=== PATIENT | female | born 1995 | race Caucasian/White ===

== ENCOUNTER 2017-06-09 13:45 | Inpatient (IN) | payer MEDICAID, SELFPAY ==
[2017-06-09 14:16] VITALS: RESP 18; BMI 18.8; BMI 18.9
[2017-06-09 14:31] VITALS: BP 121/84; PULSE 91; RESP 18; TEMP 36.5
[2017-06-09] MEDS: Buprenorphine HCl 2 MG TAB.SUBL SL (16:15)
[2017-06-09] MEDS: Methocarbamol 750 MG Tablet PO (16:15)
--- NOTE | 2017-06-09 16:31 | PCM.HP.STD ---
Problem List (1) Candidiasis of mouth Status: Acute (2) Nicotine dependence Status: Chronic (3) Heroin withdrawal Status: Acute History of Present Illness Date of Admission: 06/09/17 Chief Complaint: Heroin/fentanyl withdrawal Patient is a 21 years old female with history of heroin and fentanyl abuse, admitted for medical stabilization for [facility] program. Her last use was earlier today. She inhales both heroin and fentanyl, uses 0.5 to 2 gram of heroin a day. She has been using for last 9 month, had rehab in last December, when she had stayed clean for about 2 weeks after the intervention. She is feeling fair, but complaining of anxious feeling and leg cramps. Past Medical History Past Medical History (Chronic Problems): Chronic Problems Nicotine dependence (Chronic) Allergies No Known Allergies Allergy (Verified 01/13/17 16:19) Home Medications: Ambulatory Orders Medication Instructions Recorded Nicotine [Nicoderm Cq] 21 mg TRANSDERM. DAILY #14 patch 01/15/17 Smoking Status: Heavy Smoker (>10/day) - *Family History Maternal History Items: - - No medical problems Paternal History Items: - - No known medical problems Review of Systems Comment: ROS: In general: Patient has been in good health, denied of any constitutional symptoms, such as weight loss, or gain, fever, chills, or night sweats. Patient denied of any profound fatigue. HEENT: Unremarkable. Patient denied of any dizziness, chronic headache, blurred vision, double vision, dry mouth, or nasal congestion. CV/respiratory: There is no exertional shortness of breath, chest pain, palpitation, wheezing, cough, claudication, cold feet, or peripheral edema. GI: Patient denied any abdominal pain, nausea, vomiting, diarrhea, constipation, melena, or hematochezia. : Patient denied any significant urinary symptoms. Neurology: Unremarkable. There is no history of seizure as an adult. Psychological: +anxiety, opioid abuse. Endocrine: Unremarkable. Musculoskeletal: Upper leg cramps bilaterally. VTE Information - Inpt Only VTE Present on Admission: No VTE Mechan Device Prophylaxis: None VTE Pharm Prophylaxis ordered?: No Reason prophylaxis not ordered:: Treatment Not Indicated - Low risk. Patient Problems: Active and Suspected Problems Candidiasis of mouth (Acute) Objective: In general, patient is a well-nourished and developed adult. HEENT: Head is atraumatic, and normocephalic. Pupils are equal, round, and reactive to light and accommodations. Neck is supple. There is no lymphadenopathy, or thyromegaly. Oral mucosa is pink, and moist. +thrush. Heart: Auscultation is normal with regular rhythm and rate. There is no extra heart sounds, or murmurs. S1 and S2 are present. Point of maximal impulse is not displaced. Lungs: Lungs are clear to auscultation bilaterally. There is no wheezing, or crackles. Abdomen: Abdominal wall is non-tender, and non-distended. There is no palpable mass or organomegaly. Normoactive bowel sounds are present. Extremities: There is no cyanosis or clubbing. Peripheral pulses are palpable. There is no edema. Skin: There are no any skin discoloration or lesions. Neurological: CN II - XII are intact. Sensory and motor functions are grossly normal with no obvious deficit. Cerebellar functions are within normal range. Gait was not tested. - Physical Exam Vital Signs Temp Pulse Resp BP 97.7 F L 91 18 121/84 H 06/09/17 14:31 06/09/17 14:31 06/09/17 14:31 06/09/17 14:31 Oxygen Delivery Method Room Air Weight: 106 lb 9.6 oz Body Mass Index (BMI) 18.8 Assessment/Plan Active and Suspected Problems Candidiasis of mouth (Acute) Patient is a 21 years old female with history of heroin and fentanyl abuse, admitted for medical stabilization for [facility] program. Her last use was earlier today. She inhales both heroin and fentanyl, uses 0.5 to 2 gram of heroin a day. She has been using for last 9 month, had rehab in last December, when she had stayed clean for about 2 weeks after the intervention. She is feeling fair, but complaining of anxious feeling and leg cramps. #1 Opioid withdrawal. Start medical stabilization protocol by [facility] with buprenorphine tapering. #2 Oral candidiasis. Sig Nystatin mouth wash. #3 Nicotine dependency. Nicotine patch 21 mg daily. VTE prophylaxis: Not indicated for low risk. Early ambulation. GI prophylaxis: Pepcid PO. She is full code. Disposition: per [facility]. Code Visit Inpatient E&M: 25657 Init Hosp L2
--- NOTE | 2017-06-09 16:39 | HP.PCM_ITS ---
Problem List (1) Candidiasis of mouth Status: Acute (2) Nicotine dependence Status: Chronic (3) Heroin withdrawal Status: Acute History of Present Illness Date of Admission: 06/09/17 Chief Complaint: Heroin/fentanyl withdrawal Patient is a 21 years old female with history of heroin and fentanyl abuse, admitted for medical stabilization for [facility] program. Her last use was earlier today. She inhales both heroin and fentanyl, uses 0.5 to 2 gram of heroin a day. She has been using for last 9 month, had rehab in last December , when she had stayed clean for about 2 weeks after the intervention. She is feeling fair, but complaining of anxious feeling and leg cramps. Past Medical History Past Medical History (Chronic Problems): Chronic Problems Nicotine dependence (Chronic) Allergies No Known Allergies Allergy (Verified 01/13/17 16:19) Home Medications: Ambulatory Orders Medication Instructions Recorded Nicotine [Nicoderm Cq] 21 mg TRANSDERM. DAILY #14 patch 01/15/17 Smoking Status: Heavy Smoker (>10/day) - *Family History Maternal History Items: - - No medical problems Paternal History Items: - - No known medical problems Review of Systems Comment: ROS: In general: Patient has been in good health, denied of any constitutional symptoms, such as weight loss, or gain, fever, chills, or night sweats. Patient denied of any profound fatigue. HEENT: Unremarkable. Patient denied of any dizziness, chronic headache, blurred vision, double vision, dry mouth, or nasal congestion. CV/respiratory: There is no exertional shortness of breath, chest pain, palpitation, wheezing, cough, claudication, cold feet, or peripheral edema. GI: Patient denied any abdominal pain, nausea, vomiting, diarrhea, constipation, melena, or hematochezia. : Patient denied any significant urinary symptoms. Neurology: Unremarkable. There is no history of seizure as an adult. Psychological: +anxiety, opioid abuse. Endocrine: Unremarkable. Musculoskeletal: Upper leg cramps bilaterally. VTE Information - Inpt Only VTE Present on Admission: No VTE Mechan Device Prophylaxis: None VTE Pharm Prophylaxis ordered?: No Reason prophylaxis not ordered:: Treatment Not Indicated - Low risk. Patient Problems: Active and Suspected Problems Candidiasis of mouth (Acute) Objective: In general, patient is a well-nourished and developed adult. HEENT: Head is atraumatic, and normocephalic. Pupils are equal, round, and reactive to light and accommodations. Neck is supple. There is no lymphadenopathy, or thyromegaly. Oral mucosa is pink, and moist. +thrush. Heart: Auscultation is normal with regular rhythm and rate. There is no extra heart sounds, or murmurs. S1 and S2 are present. Point of maximal impulse is not displaced. Lungs: Lungs are clear to auscultation bilaterally. There is no wheezing, or crackles. Abdomen: Abdominal wall is non-tender, and non-distended. There is no palpable mass or organomegaly. Normoactive bowel sounds are present. Extremities: There is no cyanosis or clubbing. Peripheral pulses are palpable. There is no edema. Skin: There are no any skin discoloration or lesions. Neurological: CN II - XII are intact. Sensory and motor functions are grossly normal with no obvious deficit. Cerebellar functions are within normal range. Gait was not tested. - Physical Exam Vital Signs Temp Pulse Resp BP 97.7 F L 91 18 121/84 H 06/09/17 14:31 06/09/17 14:31 06/09/17 14:31 06/09/17 14:31 Oxygen Delivery Method Room Air Weight: 106 lb 9.6 oz Body Mass Index (BMI) 18.8 Assessment/Plan Active and Suspected Problems Candidiasis of mouth (Acute) Patient is a 21 years old female with history of heroin and fentanyl abuse, admitted for medical stabilization for [facility] program. Her last use was earlier today. She inhales both heroin and fentanyl, uses 0.5 to 2 gram of heroin a day. She has been using for last 9 month, had rehab in last December , when she had stayed clean for about 2 weeks after the intervention. She is feeling fair, but complaining of anxious feeling and leg cramps. #1 Opioid withdrawal. Start medical stabilization protocol by [facility] with buprenorphine tapering. #2 Oral candidiasis. Sig Nystatin mouth wash. #3 Nicotine dependency. Nicotine patch 21 mg daily. VTE prophylaxis: Not indicated for low risk. Early ambulation. GI prophylaxis: Pepcid PO. She is full code. Disposition: per [facility]. Code Visit Inpatient E&M: 03261 Init Hosp L2
[2017-06-09 16:47] LABS: Absolute Lymphocyte Count 2.85 X10^3/ul (0.83-4.51); Absolute Neutrophil Count 4.6 X10^3/uL (2.0-7.7); Basophil# 0.02 X10^3/uL; Basophil% 0.2 % (0-1); Eosinophil# 0.06 X10^3/uL; Eosinophils% 0.7 % (0-5); Hematocrit 43.7 % (37-47); Hemoglobin 14.6 g/dl (12.0-15.0); Lymphocyte # 2.85 X10^3/ul (4.0); Mean Corp Hgb Conc 33.4 g/gl (32-36); Mean Corpuscular Hgb 31.6 pg (27.0-32.0); Mean Corpuscular Volume 94.6 fL (81-99); Mean Platelet Vol. 9.4 fl (6.2-12.0); Monocyte# 0.65 X10^3/uL; Neutrophil # 4.55 X10^3/uL (2.7-7.7); Platelet Count 266 K/mm3 (150-450); RBC Distribution Width CV 12.7 % (11.6-14.6); RBC Distribution Width SD 43.7 fl (35.1-43.9); Red Blood Count 4.62 M/mm3 (4.2-5.4); White Blood Count 8.1 K/mm3 (4.4-11.0)
[2017-06-09 16:49] LABS: POSITIVE COUNT NO; POSITIVE DIFFERENTIAL NO; POSITIVE MORPHOLOGY NO
[2017-06-09 17:28] LABS: Anion Gap 8 (5-15); BUN 15 mg/dL (7-18); BUN/Creat Ratio 16.7 RATIO (10-20); Calcium,Total 9.4 mg/dL (8.5-10.1); Chloride 104 mmol/L (98-107); EST Glomerular Filtration Rate 85 mL/min (>60); Est Glom Filt Rate - Afr Amer 102 mL/min (>60); Estimated Creatinine Clearance 76.11 ml/min; Glucose 94 mg/dL (74-106); Sodium Level 140 mmol/L (136-145)
[2017-06-09 17:33] LABS: Pregnancy, Serum, hCG Quali. NEGATIVE Negative (0-9 Nonpreg)
[2017-06-09 17:51] VITALS: BP 126/84; PULSE 78; RESP 18; TEMP 36.6
[2017-06-09] MEDS: NYSTATIN 500,000 UNIT/5 ML UDC 500000 UNIT PO ×2 (17:57→21:51)
[2017-06-09] MEDS: Famotidine 20 MG Tablet PO (21:51)
[2017-06-09] MEDS: traZODone 50 MG Tablet PO (21:51)
[2017-06-09 22:00] VITALS: BP 110/66; PULSE 91; RESP 18; TEMP 36.7
[2017-06-10] VITALS (8 sets, daily range): BP systolic 100–135; BP diastolic 55–82; PULSE 59–83; RESP 16–18; TEMP 36.6–36.7; O2SAT 99–100
[2017-06-10] MEDS: Buprenorphine HCl 2 MG TAB.SUBL SL ×4 (01:07→23:51)
[2017-06-10] MEDS: Multivitamins,Ther W-Minerals Tablet 1 TABLET PO (07:44)
[2017-06-10] MEDS: NYSTATIN 500,000 UNIT/5 ML UDC 500000 UNIT PO ×4 (08:58→21:28)
[2017-06-10] MEDS: Famotidine 20 MG Tablet PO ×2 (08:58→21:28)
--- NOTE | 2017-06-10 10:03 | PCM.PN.HOSP ---
Patient Problems: Active and Suspected Problems Candidiasis of mouth (Acute) Subjective: Patient is feeling better as compared to yesterday with respect to withdrawal symptoms. Her bowel movements are more controlled. Less aches and pains. Vitals/I&O's: Vital Signs Temp Pulse Resp BP Pulse Ox 97.9 F 59 L 18 105/64 100 06/10/17 07:40 06/10/17 07:40 06/10/17 07:40 06/10/17 07:40 06/10/17 07:40 Oxygen Delivery Method Room Air Weight: 106 lb 9.6 oz Body Mass Index (BMI) 18.8 Intake and Output for Last 24 Hours 06/08/17 06/09/17 06/10/17 23:59 23:59 23:59 Intake Total 700 / 700 700 / 700 Balance 700 / 700 700 / 700 General: Alert, Oriented x3, Cooperative HEENT: Atraumatic, PERRLA, EOMI, Normocephalic Neck: Supple, No JVD, Negative Carotid Bruits Lungs: Clear to auscultation, Normal air movement, No rhonchi, No wheeze, No rales Cardiovascular: Regular rate, Regular Rhythm, Normal S1, Normal S2, No murmurs Abdomen: Bowel Sounds Present, Soft, Non Tender, Non-Distended Extremities: No edema, Capillary Refill Less than 3 Seconds Skin: No rashes, No breakdown Musculoskeletal: No Tenderness to Palpation of Joints or Extremities Neurological: Cranial nerves II-XII grossly intact, Neuro grossly intact Psych/Mental Status: Normal Affect, Appropriate Laboratory Results 06/09/17 16:23: Serum , Qual NEGATIVE 06/09/17 16:23: WBC 8.1, RBC 4.62, Hgb 14.6, Hct 43.7, MCV 94.6, MCH 31.6, MCHC 33.4, RDW 12.7, RDW Differential 43.7, Plt Count 266, MPV 9.4, Immature Gran % (Auto) 0.100, Neut % (Auto) 56.0, Lymph % (Auto) 35.0, Dupage % (Auto) 8.0, Eos % (Auto) 0.7, Baso % (Auto) 0.2, Absolute Neuts (auto) 4.6, Absolute Lymphs (auto) 2.85, Total Counted Not Reportable 06/09/17 16:23: Sodium 140, Potassium 4.0, Chloride 104, Carbon Dioxide 28.0, Anion Gap 8, BUN 15, Creatinine 0.90, Estim Creat Clear Calc 76.11, Est GFR (MDRD) Af Amer 102, Est GFR (MDRD) Non-Af 85, BUN/Creatinine Ratio 16.7, Glucose 94, Calcium 9.4 Current Medications Acetaminophen (Tylenol) 500 mg PO Q4H PRN PRN PRN Reason: Temp > 100.4 F Al Hydroxide/Mg Hydroxide (Mylanta Ii) 30 ml PO Q6H PRN PRN PRN Reason: dyspesia Bisacodyl (Dulcolax) 10 mg RECTAL DAILY PRN PRN Reason: Constipation Buprenorphine HCl (Buprenorphine Hcl) 4 mg SL Q8H [facility] PRN Reason: Taper Stop: 06/12/17 19:59 Last Admin: 06/10/17 07:44 Dose: 4 mg Clonidine (Catapres) 0.1 mg PO Q2H PRN PRN PRN Reason: Hot/Cold Sweats or Anxiety Dicyclomine HCl (Bentyl) 20 mg PO Q6H PRN PRN PRN Reason: Abdomnial Discomfort Famotidine (Pepcid) 20 mg PO BID [facility] Last Admin: 06/10/17 08:58 Dose: 20 mg Hydroxyzine HCl (Vistaril) 50 mg IM Q6H PRN PRN PRN Reason: Breakthrough Anxiety Hydroxyzine Pamoate (Vistaril) 50 mg PO Q6H PRN PRN PRN Reason: Mild Anxiety (score 1/3) Ibuprofen (Motrin) 600 mg PO Q8H PRN PRN PRN Reason: Mild-Moderate Pain (1-5/10) Loperamide HCl (Imodium) 2 - 4 mg PO UD PRN PRN Reason: LOOSE STOOLS Magnesium Hydroxide (Milk Of Magnesia) 30 ml PO DAILY PRN PRN PRN Reason: Constipation Methocarbamol (Methocarbamol) 750 mg PO Q6H PRN PRN PRN Reason: Muscle Aches Last Admin: 06/09/17 16:15 Dose: 750 mg Multivitamins/Minerals ([facility]) [facility] Last Admin: 06/10/17 07:44 Dose: 1 tablet Nicotine (Nicoderm Cq (Pbkc)) 21 mg TRANSDERM. DAILY [facility] Last Admin: 06/10/17 08:58 Dose: 21 mg Nystatin (Nystatin) 500,000 unit PO 4X/DAY [facility] Last Admin: 06/10/17 08:58 Dose: 500,000 unit Ondansetron HCl (Zofran Odt) 4 mg PO Q6H PRN PRN PRN Reason: NAUSEA Pramipexole Dihydrochloride (Mirapex) 0.25 mg PO Q12H PRN PRN PRN Reason: Restless Legs Quetiapine Fumarate (Seroquel) 25 mg PO Q6H PRN PRN PRN Reason: Moderate Anxiety (score 2/3) Senna (Senokot) 1 tablet PO QHS PRN PRN Reason: Constipation Trazodone HCl (Desyrel) 50 mg PO QHS [facility] Last Admin: 06/09/17 21:51 Dose: 50 mg Assessment/Plan Active and Suspected Problems Candidiasis of mouth (Acute) Patient is a 21 years old female with history of heroin and fentanyl abuse, admitted for medical stabilization for [facility] program. Her last use was on the day of admission. She inhales both heroin and fentanyl, uses 0.5 to 2 gram of heroin a day. She denies IV use. She has been using for last 9 month, had rehab in last December, when she had stayed clean for about 2 weeks after the intervention. She is feeling fair, but complaining of anxious feeling and leg cramps. #1 Opioid withdrawal. Start medical stabilization protocol by [facility] with buprenorphine tapering. Patient. Much better. labs reviewed. U tox is positive of amphetamine, methamphetamine and cannabinoids. test is negative. CBC and BMP normal #2 Oral candidiasis. Nystatin mouth swish and swallow #3 Nicotine dependency. Nicotine patch 21 mg daily. VTE prophylaxis: Not indicated for low risk. Early ambulation. GI prophylaxis: Pepcid PO. She is full code. Code Visit Inpatient E&M: 92573 Subs Hosp L2
[2017-06-10] MEDS: cloNIDine HCl 0.1 MG Tablet PO (14:10)
[2017-06-10] MEDS: Ibuprofen 600 MG Tablet PO (14:10)
[2017-06-10 15:02] LABS: Amphetamine Urine VISTA POSITIVE (<1000 ng/mL); Barbiturate Urine VISTA NEGATIVE (< 200 ng/mL); Benzodiazepine Urine VISTA NEGATIVE (< 200 ng/mL); Cocaine Urine VISTA NEGATIVE (< 300 ng/mL); Ecstacy Urine VISTA POSITIVE (< 500 ng/mL); Methadone Urine VISTA NEGATIVE (< 300 ng/mL); PCP Urine VISTA NEGATIVE (< 25 ng/mL); THC Urine VISTA POSITIVE (< 50 ng/mL); Vista UDS pH Range 4
[2017-06-10] MEDS: Methocarbamol 750 MG Tablet PO (21:28)
[2017-06-10] MEDS: traZODone 50 MG Tablet PO (21:28)
[2017-06-11 08:44] VITALS: BP 131/67; PULSE 65; RESP 16; TEMP 36.3
[2017-06-11] MEDS: Famotidine 20 MG Tablet PO (08:49)
[2017-06-11] MEDS: Multivitamins,Ther W-Minerals Tablet 1 TABLET PO (08:49)
[2017-06-11] MEDS: Buprenorphine HCl 2 MG TAB.SUBL SL (08:49)
[2017-06-11] MEDS: NYSTATIN 500,000 UNIT/5 ML UDC 500000 UNIT PO ×2 (08:49→14:26)
[2017-06-11 14:21] VITALS: BP 124/77; PULSE 72; RESP 14; TEMP 36.8
[2017-06-11] MEDS: cloNIDine HCl 0.1 MG Tablet PO (14:26)
--- NOTE | 2017-06-11 15:33 | PCM.PN.HOSP ---
Patient Problems: Active and Suspected Problems Candidiasis of mouth (Acute) Subjective: Patient feels much better. Vitals/I&O's: Vital Signs Temp Pulse Resp BP Pulse Ox 98.2 F 72 14 124/77 H 99 06/11/17 14:21 06/11/17 14:21 06/11/17 14:21 06/11/17 14:21 06/10/17 17:39 Oxygen Delivery Method Room Air Weight: 106 lb 9.602 oz Body Mass Index (BMI) 18.8 Intake and Output for Last 24 Hours 06/09/17 06/10/17 06/11/17 23:59 23:59 23:59 Intake Total 700 / 700 1380 / 1380 500 / 500 Output Total 150 / 150 Balance 700 / 700 1380 / 1380 350 / 350 General: Alert, Oriented x3, Cooperative HEENT: Atraumatic, PERRLA, EOMI, Normocephalic Neck: Supple, No JVD, Negative Carotid Bruits Lungs: Clear to auscultation, Normal air movement Cardiovascular: Regular rate, Regular Rhythm, Normal S1, Normal S2, No murmurs Abdomen: Bowel Sounds Present, Soft, Non Tender, Non-Distended Extremities: No edema, Capillary Refill Less than 3 Seconds Skin: No rashes, No breakdown Musculoskeletal: No Tenderness to Palpation of Joints or Extremities Neurological: Cranial nerves II-XII grossly intact, Neuro grossly intact Psych/Mental Status: Normal Affect, Appropriate Current Medications Acetaminophen (Tylenol) 500 mg PO Q4H PRN PRN PRN Reason: Temp > 100.4 F Al Hydroxide/Mg Hydroxide (Mylanta Ii) 30 ml PO Q6H PRN PRN PRN Reason: dyspesia Bisacodyl (Dulcolax) 10 mg RECTAL DAILY PRN PRN Reason: Constipation Buprenorphine HCl (Buprenorphine Hcl) 2 mg SL Q12H [facility] PRN Reason: Taper Stop: 06/12/17 19:59 Last Admin: 06/11/17 08:49 Dose: 2 mg Clonidine (Catapres) 0.1 mg PO Q2H PRN PRN PRN Reason: Hot/Cold Sweats or Anxiety Last Admin: 06/11/17 14:26 Dose: 0.1 mg Dicyclomine HCl (Bentyl) 20 mg PO Q6H PRN PRN PRN Reason: Abdomnial Discomfort Famotidine (Pepcid) 20 mg PO BID [facility] Last Admin: 06/11/17 08:49 Dose: 20 mg Hydroxyzine HCl (Vistaril) 50 mg IM Q6H PRN PRN PRN Reason: Breakthrough Anxiety Hydroxyzine Pamoate (Vistaril) 50 mg PO Q6H PRN PRN PRN Reason: Mild Anxiety (score 1/3) Ibuprofen (Motrin) 600 mg PO Q8H PRN PRN PRN Reason: Mild-Moderate Pain (1-5/10) Last Admin: 06/10/17 14:10 Dose: 600 mg Loperamide HCl (Imodium) 2 - 4 mg PO UD PRN PRN Reason: LOOSE STOOLS Magnesium Hydroxide (Milk Of Magnesia) 30 ml PO DAILY PRN PRN PRN Reason: Constipation Methocarbamol (Methocarbamol) 750 mg PO Q6H PRN PRN PRN Reason: Muscle Aches Last Admin: 06/10/17 21:28 Dose: 750 mg [facility]ivitamins/Minerals [facility] Last Admin: 06/11/17 08:49 Dose: 1 tablet Nicotine Polacrilex ([place] Nicotine (Pbkc)) 4 mg PO Q2H PRN PRN PRN Reason: nicotine craving Last Admin: 06/11/17 13:49 Dose: 4 mg Nystatin (Nystatin) 500,000 unit PO 4X/DAY [facility] Last Admin: 06/11/17 14:26 Dose: 500,000 unit Ondansetron HCl (Zofran Odt) 4 mg PO Q6H PRN PRN PRN Reason: NAUSEA Pramipexole Dihydrochloride (Mirapex) 0.25 mg PO Q12H PRN PRN PRN Reason: Restless Legs Quetiapine Fumarate (Seroquel) 25 mg PO Q6H PRN PRN PRN Reason: Moderate Anxiety (score 2/3) Senna (Senokot) 1 tablet PO QHS PRN PRN Reason: Constipation Trazodone HCl (Desyrel) 50 mg PO QHS [facility] Last Admin: 06/10/17 21:28 Dose: 50 mg Assessment/Plan Active and Suspected Problems Candidiasis of mouth (Acute) Patient is a 21 years old female with history of heroin and fentanyl abuse, admitted for medical stabilization for [facility] program. Her last use was on the day of admission. She inhales both heroin and fentanyl, uses 0.5 to 2 gram of heroin a day. She denies IV use. She has been using for last 9 month, had rehab in last December, when she had stayed clean for about 2 weeks after the intervention. She is feeling fair, but complaining of anxious feeling and leg cramps. #1 Opioid withdrawal. Start medical stabilization protocol by [facility] with buprenorphine tapering. Patient. Much better. labs reviewed. U tox is positive of amphetamine, methamphetamine and cannabinoids. test is negative. CBC and BMP normal #2 Oral candidiasis. Nystatin mouth swish and swallow #3 Nicotine dependency. Nicotine patch 21 mg daily. VTE prophylaxis: Not indicated for low risk. Early ambulation. GI prophylaxis: Pepcid PO. She is full code. Patient needs 1 more day as per [facility] program. Discharge tomorrow. Code Visit Inpatient E&M: 57947 Subs Hosp L2
--- NOTE | 2017-06-11 17:46 | NURSING ---
Pt asked to speak with nurse. This nurse in room. Pt states I want to leave. I don't feel like I need to be here another day, I feel okay, and my ride is here now and I have to go to [place]. Discussed with pt that leaving hospital she would need to sign form stating she was leaving hospital/program against medical advice- pt states I know I want to leave. I will sign it. Pt signed form, given copy of form, and left ambulatory.
--- NOTE | 2017-06-11 17:50 | NURSING ---
This nurse texted Dr. Muñoz and informed him that pt wanted to leave AMA. No return phone call yet.
--- NOTE | 2017-06-11 18:33 | DS.PCM_ITS ---
Discharge Date and Diagnosis Date of Admission: 06/09/17 Date of Discharge: 06/11/17 - Primary Discharge Diagnosis Patient signed AMA Acute opioid withdrawal Polysubstance use including opioids - Secondary Discharge Diagnosis Chronic Problems Nicotine dependence (Chronic) Hospital Course and Treatment Operations: None Summary of Care Provided: [] Patient is a 21 years old female with history of heroin and fentanyl abuse, admitted for medical stabilization for [facility] program. Her last use was on the day of admission. She inhales both heroin and fentanyl, uses 0.5 to 2 gram of heroin a day. She denies IV use. She has been using for last 9 month , had rehab in last December, when she had stayed clean for about 2 weeks after the intervention. She is feeling fair, but complaining of anxious feeling and leg cramps. #1 Opioid withdrawal. Start medical stabilization protocol by [facility] with buprenorphine tapering. Patient. Much better. labs reviewed. U tox is positive of amphetamine, methamphetamine and cannabinoids. test is negative. CBC and BMP normal #2 Oral candidiasis. Nystatin mouth swish and swallow #3 Nicotine dependency. Nicotine patch 21 mg daily. The patient was supposed to be discharged tomorrow as per [facility]. He signed AMA today. Patient was explained the risk of signing AMA. Patient outpatient was on tapering dose of buprenorphine along with multiple medications for stabilization for opioid withdrawal as per [facility] protocol. Home Medications: Medications to take at Discharge Nicotine [Nicoderm Cq] 21 mg TRANSDERM. DAILY #14 patch 01/15/17 Meaningful Use Info Meaningful Use Diagnoses (Choose all that apply): None applicable
== END 2017-06-11 17:58 | disposition left against medical advice (07) | DRG 433 ==
PROVIDERS: Admitting Provider Hospitalist; Visit Provider Internal Medicine
DX: F11.23 Opioid dependence with withdrawal (principal); B37.0 Candidal stomatitis; F17.200 Nicotine dependence, unspecified, uncomplicated
CPT/HCPCS: 36415; 80048; 80307; 84703; 85025; 97802